=== PATIENT | female | born 1995 | race Caucasian/White ===

== ENCOUNTER → 2019-06-14 | Outpatient (REF) | payer OTHER | LOC: M SFHCLERA 10:18 | PROVIDERS: ATTEND Physician Assistant | DX: J02.9 Acute pharyngitis, unspecified (principal) ==

== ENCOUNTER → 2019-07-25 | Outpatient (REF) | payer OTHER | LOC: M SFHCLERA 12:24 | PROVIDERS: ATTEND Physician Assistant | DX: J02.9 Acute pharyngitis, unspecified (principal) ==